=== PATIENT | male | born 1975 | race Caucasian/White ===

== ENCOUNTER 2020-07-23 17:24 | Emergency (ER) | payer OTHER ==
[~2020-07-23] VITALS: Ht 172.7 cm; Wt 110.0 kg
[~2020-07-23 17:24] MED LIST: ACET-1600 PO; CYCL15CA20 PO; IBUP-1902 PO; SERT50TA28 PO; antidepressant PO
[2020-07-23] MEDS ORDERED: LIDOCAINE-MPF 1%, 2ML ONE (17:56)
[2020-07-23] MEDS ORDERED: DIPH,PERTUSS(ACELL),TET VAC/PF 0.5 ML IM-VACC ONE ×2 (17:56→18:00)
[2020-07-23] MEDS ORDERED: LIDOCAINE-MPF 1%, 5ML INFIL ONE (18:00)
[2020-07-23] MEDS ORDERED: NEOSPORIN OINT. PKT 1 PACKET ONE ×2 (18:04→19:17)
[2020-07-23 19:12] VITALS: BP 108/59
== END 2020-07-23 19:33 | disposition home or self-care (01) ==
LOC: ED 18:06
DX: S61.512A Laceration without foreign body of left wrist, initial encounter (principal); Z87.891 Personal history of nicotine dependence; W26.0XXA Contact with knife, initial encounter; Y93.89 Activity, other specified; Y92.098 Other place in other non-institutional residence as the place of occurrence of the external cause; Y99.8 Other external cause status
CPT/HCPCS: 12042; 90471; 90715; 99284